=== PATIENT | male | born 1970 | race Caucasian/White ===

== ENCOUNTER 2023-10-01 12:59 | Observation (INO) ==
[2023-10-01 13:21] LABS: ABS Basophils 0.1 10^3/uL (0.0-0.1); ABS Lymphocytes 0.8 10^3/uL (1.0-4.8); ABS Monocytes 0.9 10^3/uL (0.0-1.1); ABS Neutrophils 16.5 10^3/uL (1.5-7.6); ABS Nucleated RBC 0.01 10^3/ul; Eosinophil % 0.2 %; Hematocrit 47.3 % (38-53); Hemoglobin 16.6 g/dL (13.2-16.3); Lymphocyte % 4.6 %; Mean Corpuscular Hemoglobin 33.2 pg (27-33); Mean Corpuscular Volume 94.8 fL (80-97); Mean Platelet Volume 7.7 fL (7.5-11.2); Platelet Count 312 10^3/uL (150-450); Red Blood Count 4.99 10^6/uL (4.06-5.63); Red Cell Distribution Width 12.5 % (12-17); White Blood Count 18.3 10^3/uL (3.6-10.2)
[2023-10-01 13:28] LABS: INR 1.04 (0.83-1.13)
[2023-10-01 13:46] LABS: ALT 42 U/L (7-52); Albumin 4.8 g/dL (3.2-5.2); Albumin/Globulin Ratio 1.5 (1-3); Alkaline Phosphatase 49 U/L (35-149); Anion Gap 11 mmol/L (2-16); Blood Urea Nitrogen 11 mg/dL (6-24); CO2 Carbon Dioxide 30 mmol/L (22-32); Calcium 9.8 mg/dL (8.6-10.3); Chloride 99 mmol/L (101-111); Creatinine, Serum 1.14 mg/dL (0.67-1.17); Globulin 3.2 g/dL (2-4); Glucose 107 mg/dL (70-100); Sodium 140 mmol/L (135-145); Total Bilirubin 1.1 mg/dL (0.2-1.0); eGFR CKD-EPI 77.4 (>60)
[2023-10-01 13:50] LABS: High Sens Troponin Baseline 5 pg/mL (<20)
[2023-10-01 15:53] LABS: Magnesium 1.7 mg/dL (1.9-2.7); Potassium Redraw 3.4 mmol/L (3.5-5.0)
[2023-10-01] MEDS ORDERED: Iohexol 350 (CONTRAST) 500 ML MDV IV ONE (16:26)
[2023-10-01 17:57] LABS: Creatine Kinase 99 U/L (10-223)
[2023-10-01] MEDS ORDERED: Magnesium Sulfate 2 gm BAG 2 GM/50 ML BAG IVPB ONE (18:01)
[2023-10-01] MEDS ORDERED: Potassium Chlor 20 meq TAB.ER PO ONE (19:12)
[2023-10-01 19:40] LABS: C Reactive Protein 21.58 mg/L (<8.01)
[2023-10-01] MEDS ORDERED: Albuterol HFA INHALER 8 gm MDI INH PRN (19:45)
[2023-10-02] MEDS ORDERED: guaiFENesin/CODIENE 100mg/10mg 5 ML UDC PO PRN (00:11)
[2023-10-02 06:41] LABS: ABS Eosinophils 0.2 10^3/uL (0.0-0.5); ABS Lymphocytes 1.2 10^3/uL (1.0-4.8); ABS Monocytes 0.6 10^3/uL (0.0-1.1); ABS Neutrophils 7.5 10^3/uL (1.5-7.6); ABS Nucleated RBC 0.02 10^3/ul; Eosinophil % 1.8 %; Hematocrit 42.3 % (38-53); Hemoglobin 14.9 g/dL (13.2-16.3); Lymphocyte % 12.4 %; Mean Corpuscular Hemoglobin 33.3 pg (27-33); Mean Corpuscular Hgb Conc 35.2 g/dL (31-36); Mean Corpuscular Volume 94.4 fL (80-97); Mean Platelet Volume 8.1 fL (7.5-11.2); Nucleated Red Blood Cells % 0.2 %/100WBC (0.0-0.8); Platelet Count 263 10^3/uL (150-450); Red Blood Count 4.48 10^6/uL (4.06-5.63); Red Cell Distribution Width 12.3 % (12-17); White Blood Count 9.5 10^3/uL (3.6-10.2)
[2023-10-02 07:03] LABS: Calcium 9.1 mg/dL (8.6-10.3); Creatinine, Serum 0.94 mg/dL (0.67-1.17); Magnesium 2.2 mg/dL (1.9-2.7); eGFR CKD-EPI 97.5 (>60)
[2023-10-02 07:42] LABS: Urine Appearance Clear; Urine Bilirubin Negative (Negative); Urine Blood Negative (Negative); Urine Color Yellow; Urine Glucose Negative (Negative); Urine Ketones Negative (Negative); Urine Nitrite Negative (Negative); Urine Protein Negative (Negative); Urine Specific Gravity 1.018 (1.002-1.030); Urine Urobilinogen Negative (Negative)
[2023-10-02] MEDS ORDERED: KCL 20 MEQ/100 ML IVPREMIX 20 MEQ/100 ML BAG IV SCH (08:00)
[2023-10-02] MEDS: Potassium Chlor 20 meq TAB.ER PO SCH ×2 (09:12→14:18)
[2023-10-02] MEDS ORDERED: Potassium Chlor 20 meq TAB.ER PO ONE (13:51)
[2023-10-02 16:11] VITALS: BP 124/74
[2023-10-05 00:10] LABS: Anaplasma phagocytophilum Negative (Negative); B. miyamotoi PCR, B Negative (Negative); Babesia divergens/MO-1 Negative (Negative); Babesia ducani Negative (Negative); Ehrlichia chaffeensis Negative (Negative); Ehrlichia ewingii/canis Negative (Negative); Ehrlichia muris eauclairensis Negative (Negative)
== END 2023-10-02 16:30 | disposition home or self-care (01) ==
LOC: ED 12:59 → EDHOLD 12:59 → SUATTDRO 19:08 → MEDTELE 21:38
PROVIDERS: ADMIT Internal Medicine; ATTEND Hospitalist